=== PATIENT | male | born 1965 | race Caucasian/White ===

== ENCOUNTER 2022-10-10 09:49 | Emergency (ER) | payer BC, SELFPAY ==
[2022-10-10 09:50] VITALS: BP 129/71; PULSE 69; RESP 14; TEMP 36.4; O2SAT 99; BMI 29.3
--- NOTE | 2022-10-10 10:02 | RAD_ITS ---
STUDY: X-RAY - LEFT ELBOW REASON FOR EXAM: Male, 57 years old. Injury TECHNIQUE: 3 view(s) of the elbow. COMPARISON: None. FINDINGS: Small spur is seen in the posterior aspect of the olecranon. Normal radiocapitellar and ulnotrochlear articulations. Soft tissue swelling. RAD/Elbow min 3 Views IMPRESSION: No acute abnormality is seen. Soft tissue swelling. Electronically Signed: Aman Hernandez MD at 10:44 EDT ,
--- NOTE | 2022-10-10 10:02 | EX.ED.UPPERE ---
HPI History of Present Illness Chief Complaint: Upper Extremity Injury Detail of Chief Complaint: Injury left elbow Informant: patient Narrative Narrative: Patient presents to the emergency department after sustaining an injury to his left elbow last evening. Patient states that he was walking on a new deck and fell between some joist. He was having some discomfort to his left arm since the fall. Also he bumped his nose. He is not sure if he lost consciousness. Patient did sustain an abrasion to his nose. Patient is right-hand dominant. Patient up-to-date on tetanus. [facility] Medical History (Updated 10/10/22 @ 11:[address] Shobha Aguilar, DO) Diabetes Hypertension Home Medications aspirin 81 mg chewable tablet 81 mg PO DAILY@0800 02/02/15 [History Last Taken 02/02/15] atorvastatin 80 mg tablet 80 mg PO QHS 02/02/15 [History Last Taken 02/01/15] clopidogrel 75 mg tablet 75 mg PO DAILY 02/02/15 [History Last Taken 02/02/15] lisinopril 20 mg-hydrochlorothiazide 12.5 mg tablet (Zestoretic) 1 ea PO DAILY 02/02/15 [History Last Taken 02/02/15] metoprolol tartrate 25 mg tablet 25 mg PO BID 02/02/15 [History Last Taken 02/02/15] dapagliflozin propanediol 10 mg tablet (Farxiga) 10 mg PO DAILY 10/10/22 [History Last Taken Unknown] dulaglutide 1.5 mg/0.5 mL subcutaneous pen injector (Trulicity) 1.5 mg subcut QWEEK 10/10/22 [History Last Taken Unknown] metformin 500 mg tablet 500 mg PO BID 10/10/22 [History Last Taken Unknown] trazodone 50 mg tablet 50 mg PO QHS 10/10/22 [History Last Taken Unknown] Allergy/AdvReac Type Severity Reaction Status Date / Time codeine Allergy Nausea Verified 10/10/22 09:50 Surgical History (Updated 10/10/22 @ 10:00 by Christina Pierre) H/O heart artery stent Social History Smoking Status: Former smoker ROS ROS ED Review of Systems ROS Unobtainable: other Constitutional Constitutional ED: Reports lethargy; Denies chills, fever(s), sweats or weight loss Eyes Eyes: Denies blurry vision, change in vision or diplopia ENT ENT ED: Denies rhinorrhea or sore throat Cardiovascular Cardiovascular: Denies chest pain, orthopnea or racing heartbeat Respiratory/Chest Respiratory/Chest: Denies cough, dyspnea, dyspnea on exertion, orthopnea or sputum Gastrointestinal Gastrointestinal: Denies abdominal pain, diarrhea, nausea or vomiting Genitourinary Genitourinary ED: Denies dysuria, hematuria or urinary frequency Musculoskeletal Musculoskeletal: Reports other Details: Left elbow pain/injury ; Denies arthralgias, back pain, myalgias or neck pain Integumentary Denies abscess, Abrasions or rash Neurologic Neurologic: Denies headache(s) or weakness Psychiatric Psychiatric: Denies anxiety, depression or suicidal thoughts Endocrine Endocrinology: Denies polydipsia, polyphagia or polyuria Hematologic/Lymphatic Hematologic/Lymphatic: Denies easy bleeding, easy bruising or lymphadenopathy Allergic/Immunologic Allergic/Immunologic ED: Denies mouth swelling, tongue swelling or urticaria EXAM Physical Exam Const Vital Signs: 10/10/22 09:50 Temperature 97.6 F L Temperature Source Temporal Pulse Rate 69 Respiratory Rate 14 Blood Pressure 129/71 H Blood Pressure Mean 90 Pulse Ox 99 Oxygen Delivery Method Room Air Positive well nourished and well developed General Appearance ED: well developed and NAD HEENT Reports TM's clear and moist mucous membranes HEENT Narrative: Superficial abrasion to bridge of nose. Patient has some tenderness over the nasal bridge. There is no obvious deformity. No septal hematoma. normocephalic and atraumatic; Negative for trauma or tenderness Tympanic Membrane ED: Yes TM's clear Eyes PERRL and EOMs intact bilaterally General Eye ED: Negative for pale conjunctiva or scleral icterus Neck no lymphadenopathy, supple and no JVD General: Negative for tenderness Chest Wall inspection of chest normal and palpation of chest normal Chest: Negative for tenderness Resp normal respiratory effort and clear to auscultation bilaterally Effort and Inspection: Negative for respiratory distress or pain with movement Auscultation: Negative for rhonchi, wheezes or diminished lung sounds Cardio regular rate, regular rhythm, S1 normal heart sound, S2 normal heart sound and no murmurs Peripheral Pulses: pulses 2+ throughout GI normal to inspection, nondistended, normoactive bowel sounds, soft to palpation, non-tender, non-distended and no masses Back/Spine no CVA tenderness and no thoracic nor lumbar tenderness Extremity Extremity Narrative: Left elbow-patient has diffuse tenderness palpation about the distal humerus and elbow. Patient also with tenderness over the radial head. Slightly decreased range of motion secondary to pain. Neurovascular intact. General Extremety ED: Negative for edema General Extremity: Negative for edema Neuro oriented x3, CN's II-XII intact bilaterally, no sensory deficits noted and gait normal Sensorium / Orientation: awake, alert, oriented to person, oriented to place and oriented to time Motor Exam: strength 5/5 throughout and strength abnormal Psych mental status grossly normal Skin no rashes or lesions noted and no wounds MDM MDM MDM Narrative Medical decision making narrative: Patient presents with injury to his left elbow after falling on his deck. X-rays negative for fracture or dislocation. Discussed obtaining x-rays of patient's nose however I explained that this would likely not change treatment and he does not want to have the x-rays done and states he had his nose broken before. I do not appreciate any obvious deformity. He is advised to follow-up with ENT if he feels like he is having trouble breathing through the nose or notices any obvious deformity once swelling resolves. Patient advised to follow-up with orthopedics within next 7 to 10 days. He will be given a sling for comfort. He will use ibuprofen or Tylenol for discomfort. Radiography Diagnostic Testing: Three-view x-rays of the left elbow obtained interpreted by myself as no evidence of acute fracture or dislocation. Radiology in agreement. Discharge Plan Triage Chief Complaint: Upper Extremity Injury ED Provider: Shobha Aguilar Dx/Rx/DC Orders Clinical Impression: Contusion of nose, Contusion of elbow, left Instructions: ED Contusion, Elbow, ED Nasal Contusion Prescriptions: No Action atorvastatin 80 MG tablet 80 mg PO QHS Patient Comments: CHOLESTEROL LOWERING lisinopril-hydrochlorothiazide [Zestoretic] 1 EACH tablet 1 ea PO DAILY Patient Comments: BLOOD PRESSURE clopidogrel 75 MG tablet 75 mg PO DAILY Patient Comments: BLOOD THINNER aspirin 81 MG tablet,chewable 81 mg PO DAILY@0800 Patient Comments: HEART HEALTH metoprolol tartrate 25 MG tablet 25 mg PO BID Patient Comments: BLOOD PRESSURE metformin 500 mg tablet 500 mg PO BID Patient Comments: TAKE 1 TABLET TWICE A DAY Farxiga 10 mg tablet 10 mg PO DAILY Patient Comments: TAKE 1 TABLET BY MOUTH EVERY DAY IN THE MORNING trazodone 50 mg tablet 50 mg PO QHS Patient Comments: TAKE 1 TABLET BY MOUTH EVERY DAY AT BEDTIME NEEDED FOR SLEEP Trulicity 1.5 mg/0.5 mL pen injector 1.5 mg SUBCUT QWEEK Patient Comments: INJECT 1.5 MG UNDER THE SKIN 1 (ONE) TIME PER WEEK. Primary Care Provider: Jarrod Nieves Referrals: Jarrod Nieves MD [Primary Care Provider] - Devan Mckinney DO [Med Staff - Active Staff] - 5-7 Days Disposition Disposition: Home, Self Care Discharge Date/Time: 10/10/22 11:26
== END 2022-10-10 11:26 | disposition home or self-care (01) ==
PROVIDERS: Emergency Provider Emergency Medicine; PCP Family Medicine; Visit Provider Emergency Medicine
DX: S00.33XA Contusion of nose, initial encounter (principal); E11.9 Type 2 diabetes mellitus without complications; S50.02XA Contusion of left elbow, initial encounter; W18.30XA Fall on same level, unspecified, initial encounter; Y93.01 Activity, walking, marching and hiking; I10 Essential (primary) hypertension; Z87.891 Personal history of nicotine dependence; Z79.82 Long term (current) use of aspirin; Z79.02 Long term (current) use of antithrombotics/antiplatelets; Z79.84 Long term (current) use of oral hypoglycemic drugs; Z79.899 Other long term (current) drug therapy
CPT/HCPCS: 73080; 99283